=== PATIENT | female | born 1975 | race Two or more races ===

== ENCOUNTER 2018-05-13 23:04 | Inpatient (IN) | payer MEDICAID, OTHER ==
[~2018-05-13] VITALS: Ht 154.9 cm; Wt 91.6 kg
[2018-05-13] MEDS ORDERED: SODIUM CHLORIDE 0.9% 1,000 ML IV ONE (23:54)
[2018-05-13] MEDS ORDERED: KETOROLAC 30MG/ML VIAL IV STA (23:54)
[2018-05-14] MEDS ORDERED: ASPIRIN 81MG TABLET PO ONE
[2018-05-14 00:34] LABS: EOSINOPHILS % 1.4 % (0.0-5.0); HEMATOCRIT. 37.1 % (36.0-48.0); HEMOGLOBIN. 12.4 g/dL (12.0-16.0); LYMPHOCYTES % 48.3 % (20.0-50.0); MEAN CORPUSCULAR HEMOGLOBIN 29.5 pg (28.0-32.0); MEAN CORPUSCULAR VOLUME 88.6 fL (81.0-99.0); MEAN PLATELET VOLUME 9.4 fl (7.4-10.4); MONOCYTES % 6.6 % (2.0-8.0); NEUTROPHILS % 42.7 % (40.0-76.0); PLATELET 219 x1000/uL (130-400); RED BLOOD CELL COUNT 4.19 mill/uL (4.2-5.4); RED CELL DISTRIBUTION WIDTH 14.4 % (11.6-14.6)
[2018-05-14 00:39] LABS: CHLORIDE 106 mEq/L (98-107)
[2018-05-14 00:44] LABS: D-DIMER 0.32 mg/L FEU (<0.50); ETHANOL BLOOD < 10 mg/dL; HCG SCREEN NEGATIVE; PROTHROMBIN TIME 10.2 sec (9.4-11.6)
[2018-05-14] MEDS ORDERED: ACETAMINOPHEN 325MG TABLET PO PRN (03:15)
[2018-05-14] MEDS ORDERED: DOCUSATE SODIUM 100MG CAPSULE PO PRN (03:15)
[2018-05-14] MEDS ORDERED: CLONIDINE 0.1MG TABLET PO PRN (03:15)
[2018-05-14] MEDS ORDERED: ONDANSETRON HCL 4MG/2ML VIAL IV PRN (03:15)
[2018-05-14] MEDS ORDERED: HYDROCODONE/ACETAMINOPHEN 5/325MG TABLET PO PRN (03:15)
[2018-05-14 04:00] VITALS: BP 125/80
[2018-05-14 08:00] VITALS: BP 114/77
[2018-05-14] MEDS ORDERED: ASPIRIN 81MG EC TABLET PO SCH (09:00)
[2018-05-14] MEDS ORDERED: AMLODIPINE 10MG TABLET PO SCH (09:00)
[2018-05-14 11:53] LABS: CREATINE KINASE 186 IU/L (26-192)
[2018-05-14 12:00] VITALS: BP 107/48
[2018-05-14 13:29] VITALS: BP 122/83
== END 2018-05-14 14:10 | disposition home or self-care (01) | DRG 203 ==
LOC: EDBEDREQ 05-14 01:24 → EDBEDREQTM 05-14 01:24 → ER 05-14 01:43 → 5EST 05-14 01:45 → ENRESERV 05-14 02:34 → SUPCPDRO 05-14 03:11 → 5EST 05-14 04:55
PROVIDERS: ADMIT Hospitalist; ATTEND Hospitalist
DX: M94.0 Chondrocostal junction syndrome [Tietze] (principal); Z88.0 Allergy status to penicillin; Z88.8 Allergy status to other drugs, medicaments and biological substances; Z72.0 Tobacco use
CPT/HCPCS: 36415; 71045; 80053; 82550; 82553; 83690; 83880; 84484; 84703; 85025; 85379; 85610; 93005; 93306; 96374; 99285; G0482; J1885; J7030